=== PATIENT | male | born 1955 | race Caucasian/White ===

== ENCOUNTER 2023-11-27 14:16 | Inpatient (IN) | payer MEDICARE, OTHER ==
[~2023-11-27] VITALS: Ht 172.7 cm; Wt 69.9 kg
[2023-11-27] MEDS: ONDANSETRON HCL 4MG/2ML INJ IV ONE (15:23)
[2023-11-27] MEDS: DILTIAZEM HCL 5MG/ML 5ML VIAL IV ONE (15:23)
[2023-11-27 15:46] LABS: BASOPHILS % 0.4 % (0.0-2.0); EOSINOPHILS % 0.4 % (0.0-5.0); HEMATOCRIT. 40.3 % (42.0-52.0); HEMOGLOBIN. 13.4 g/dL (14.0-18.0); LYMPHOCYTES % 7.9 % (20.0-50.0); MEAN CORPUSCULAR HEMOGLOBIN 30.6 pg (28.0-32.0); MEAN CORPUSCULAR HGB CONC 33.3 g/dL (31.0-37.0); MEAN CORPUSCULAR VOLUME 91.7 fL (80.0-94.0); MEAN PLATELET VOLUME 8.9 fl (7.4-10.4); MONOCYTES % 5.1 % (2.0-8.0); NEUTROPHILS % 86.2 % (40.0-76.0); PLATELET 283 x1000/uL (130-400); WHITE BLOOD COUNT 12.3 x1000/uL (4.5-11.0)
[2023-11-27 15:53] LABS: CHLORIDE 112 mEq/L (98-107); POTASSIUM 3.4 mEq/L (3.5-5.1); SODIUM 141 mEq/L (136-145)
[2023-11-27 15:54] LABS: CARBON DIOXIDE 20 mEq/L (21-32)
[2023-11-27 15:55] LABS: CALCIUM 9.3 mg/dL (8.7-10.4)
[2023-11-27 15:59] LABS: CREATININE 1.1 mg/dL (0.6-1.3); GLUCOSE 140 mg/dL (70-105); UREA NITROGEN BLOOD 20 mg/dL (9-23)
[2023-11-27 16:00] LABS: TROPONIN I HIGH SENSITIVITY 20 ng/L (3.0-53)
[2023-11-27 16:01] LABS: ALANINE AMINOTRANSFERASE 9 IU/L (10-49); ALBUMIN 4.3 g/dL (3.2-4.8); ASPARTATE AMINOTRANSFERASE 16 IU/L (<34); BILIRUBIN DIRECT 0.2 mg/dL (<=3.0)
[2023-11-27 16:02] LABS: BILIRUBIN TOTAL 0.6 mg/dL (0.1-1.0); PROTEIN TOTAL 7.4 g/dL (6.0-8.3)
[2023-11-27 16:03] LABS: INR 0.9; PROTHROMBIN TIME 10.5 sec (9.6-11.0)
[2023-11-27 16:15] LABS: ETHANOL BLOOD < 10 mg/dL (<10)
[2023-11-27] MEDS: DILTIAZEM HCL 60MG TABLET PO ONE (18:10)
[2023-11-27] MEDS: AZITHROMYCIN 500MG/250ML 250 ML IV SCH (18:13)
[2023-11-27] MEDS: CEFTRIAXONE 2GM/50ML 50 ML IV ONE (18:49)
[2023-11-27 22:07] VITALS: BP 140/78; PULSE 83; RESP 19; TEMP 98.6
[2023-11-28] VITALS (8 sets, daily range): BP systolic 130–167; BP diastolic 56–86; PULSE 63–83; RESP 16–19; TEMP 97.2–99; O2SAT 96
[2023-11-28] MEDS ORDERED: DEXT 5%/0.9% NACL 1,000 ML IV SCH (01:45)
[2023-11-28] MEDS ORDERED: HYDROCODONE/ACETAMINOPHEN 5/325MG TABLET PO PRN ×2 (01:45→12:30)
[2023-11-28] MEDS ORDERED: HYDR25TA78 MT (02:10)
[2023-11-28] MEDS ORDERED: CITA40TA69 PO (02:10)
[2023-11-28] MEDS ORDERED: GABA-290 MT (02:10)
[2023-11-28] MEDS ORDERED: PANT40SU PO (02:10)
[2023-11-28] MEDS ORDERED: AMLO10TA4 MT (02:10)
[2023-11-28] MEDS ORDERED: ATOR10TA MT (02:10)
[2023-11-28] MEDS ORDERED: EMPA10TA MT (02:10)
[2023-11-28] MEDS ORDERED: COR3 MT (02:10)
[2023-11-28 07:09] LABS: BASOPHILS % 0.5 % (0.0-2.0); EOSINOPHILS % 2.2 % (0.0-5.0); HEMATOCRIT. 33.9 % (42.0-52.0); HEMOGLOBIN. 11.6 g/dL (14.0-18.0); LYMPHOCYTES % 24.9 % (20.0-50.0); MEAN CORPUSCULAR HEMOGLOBIN 30.9 pg (28.0-32.0); MEAN CORPUSCULAR HGB CONC 34.1 g/dL (31.0-37.0); MEAN CORPUSCULAR VOLUME 90.4 fL (80.0-94.0); MEAN PLATELET VOLUME 9.6 fl (7.4-10.4); MONOCYTES % 9.6 % (2.0-8.0); NEUTROPHILS % 62.8 % (40.0-76.0); PLATELET 246 x1000/uL (130-400); RED BLOOD CELL COUNT 3.75 mill/uL (4.7-6.1); RED CELL DISTRIBUTION WIDTH 15.8 % (11.6-14.6); WHITE BLOOD COUNT 9.8 x1000/uL (4.5-11.0)
[2023-11-28 07:19] LABS: CHLORIDE 111 mEq/L (98-107); POTASSIUM 3.1 mEq/L (3.5-5.1); SODIUM 141 mEq/L (136-145)
[2023-11-28 07:20] LABS: CARBON DIOXIDE 24 mEq/L (21-32)
[2023-11-28 07:25] LABS: CREATININE 1.2 mg/dL (0.6-1.3); GLUCOSE 97 mg/dL (70-105); TRIGLYCERIDE 132 mg/dL (0-150); UREA NITROGEN BLOOD 20 mg/dL (9-23)
[2023-11-28 07:26] LABS: LDL CHOLESTEROL 146 mg/dL (5-100)
[2023-11-28 07:27] LABS: CHOLESTEROL 180 mg/dL (<200); HDL CHOLESTEROL 33 mg/dL (>55); THYROID STIMULATING HORMONE 1.34 uIU/mL (0.55-4.78)
[2023-11-28] MEDS: GABAPENTIN 300MG CAPSULE PO SCH (09:04)
[2023-11-28] MEDS: CITALOPRAM HYDROBROMIDE 10MG TABLET PO SCH (09:04)
[2023-11-28] MEDS: CARVEDILOL 3.125 MG TABLET PO SCH (09:05)
[2023-11-28] MEDS: AMLODIPINE 10MG TABLET PO SCH (09:05)
[2023-11-28] MEDS: HYDRALAZINE HCL 25MG TABLET PO SCH (09:05)
[2023-11-28] MEDS: ENOXAPARIN 40MG/0.4ML SYR SUBCUT SCH (09:06)
[2023-11-28] MEDS: EMPAGLIFLOZIN 10MG TABLET PO SCH (10:01)
[2023-11-28] MEDS: PANTOPRAZOLE 40MG DR TABLET PO SCH (10:02)
[2023-11-28] MEDS: POTASSIUM CHLORIDE 20MEQ TABLET SR PO NR (10:02)
[2023-11-28] MEDS: IPRATROPIUM/ALBUTEROL 0.5-3(2.5)MG/3ML NEB HHN PRN (11:20)
[2023-11-28] MEDS ORDERED: ENOXAPARIN 80MG/0.8ML SYR SUBCUT SCH (11:30)
[2023-11-28] MEDS: ENOXAPARIN 30MG/0.3ML SYR SUBCUT NR (11:36)
[2023-11-28] MEDS ORDERED: BACLOFEN 10MG TABLET PO PRN (12:30)
[2023-11-28] MEDS: PREDNISONE 20MG TABLET PO SCH (12:36)
[2023-11-28] MEDS: ACETAMINOPHEN 325MG TABLET PO PRN (12:36)
[2023-11-28] MEDS: CEFTRIAXONE 1GM/50ML 50 ML IV SCH (12:37)
[2023-11-28 16:45] LABS: CLARITY URINE CLEAR (CLEAR); COLOR URINE YELLOW (YELLOW); GLUCOSE URINE 3+ (NEGATIVE); KETONES URINE NEGATIVE (NEGATIVE); LEUKOCYTE ESTERASE URINE NEGATIVE (NEGATIVE); NITRITE URINE NEGATIVE (NEGATIVE); OCCULT BLOOD URINE NEGATIVE (NEGATIVE); PH URINE 6.5 (4.5-8.0); PROTEIN URINE 2+ (NEGATIVE); SPECIFIC GRAVITY URINE 1.019 (1.005-1.030)
[2023-11-28 17:01] LABS: BACTERIA URINE TRACE
[2023-11-28 17:02] LABS: RBC URINE NONE SEEN /hpf (0-2); SQUAMOUS EPITHELIAL CELL URINE RARE /lpf (RARE/1+); WBC URINE 0-2 /hpf (0-2)
[2023-11-28] MEDS: CLONIDINE 0.1MG TABLET PO PRN (17:59)
[2023-11-28 18:15] LABS: TROPONIN I HIGH SENSITIVITY 17 ng/L (3.0-53)
[2023-11-28] MEDS ORDERED: NALOXONE HCL 0.4MG/ML VIAL IV PRN (19:45)
[2023-11-28] MEDS ORDERED: DEXTROSE 50% WATER 50ML SYRINGE IV PRN (19:45)
[2023-11-28] MEDS: ATORVASTATIN CALCIUM 40MG TABLET PO SCH (21:10)
[2023-11-28] MEDS: BLOOD SUGAR DIAGNOSTIC STRIP TEST SCH (21:12)
[2023-11-28] MEDS: ENOXAPARIN 80MG/0.8ML SYR SUBCUT SCH (21:12)
[2023-11-28] MEDS: INSULIN LISPRO 100 UNITS/ML SUBCUT SCH (21:18)
[2023-11-28] MEDS: IPRATROPIUM/ALBUTEROL 0.5-3(2.5)MG/3ML NEB HHN SCH (21:34)
[2023-11-29] VITALS (7 sets, daily range): BP systolic 110–184; BP diastolic 65–78; PULSE 59–85; RESP 18–20; TEMP 97.6–98.8; O2SAT 96–100
[2023-11-29] MEDS ORDERED: LEVO750T68 MT ×2 (15:22→17:18)
[2023-11-29] MEDS ORDERED: APIX5TAB MT (15:22)
[2023-11-29] MEDS ORDERED: MED4 MT ×2 (15:22→17:18)
== END 2023-11-29 18:47 | disposition home or self-care (01) | DRG 190 ==
LOC: ER 14:59 → 8WST 19:06 → EDBEDREQ 19:09 → EDBEDREQTM 19:09
PROVIDERS: ADMIT Internal Medicine; ATTEND Internal Medicine
DX: J44.0 Chronic obstructive pulmonary disease with (acute) lower respiratory infection (principal); J18.1 Lobar pneumonia, unspecified organism; J44.1 Chronic obstructive pulmonary disease with (acute) exacerbation; I48.91 Unspecified atrial fibrillation; E87.6 Hypokalemia; E11.9 Type 2 diabetes mellitus without complications; F17.210 Nicotine dependence, cigarettes, uncomplicated; I10 Essential (primary) hypertension; I25.10 Atherosclerotic heart disease of native coronary artery without angina pectoris; Z88.0 Allergy status to penicillin; Z91.148 Patient's other noncompliance with medication regimen for other reason; Z95.5 Presence of coronary angioplasty implant and graft; Z88.8 Allergy status to other drugs, medicaments and biological substances; Z79.899 Other long term (current) drug therapy
CPT/HCPCS: 36415; 71045; 74176; 80048; 80061; 80076; 80320; 81003; 82962; 83036; 83605; 83880; 84443; 84484; 85025; 93005; 93306; 94640; 99291; C1893; J0456; J0696; J1650; J1815; J2405; J3490; J7042; J7512; G0480